=== PATIENT | female | born 1965 | race African-American/Black ===

== ENCOUNTER 2023-04-24 02:17 | Emergency (ER) | payer MEDICAID, OTHER ==
[~2023-04-24] VITALS: Ht 162.6 cm; Wt 75.0 kg
[2023-04-24 02:29] VITALS: TEMP 98.5; O2SAT 99
[2023-04-24 03:30] VITALS: BP 146/92; PULSE 96; RESP 16
[2023-04-24] MEDS ORDERED: IBUPROFEN 600MG TABLET PO ONE (03:30)
[2023-04-24] MEDS ORDERED: METH-653 MT (05:50)
[2023-04-24] MEDS ORDERED: IBUP-2028 MT (05:50)
== END 2023-04-24 06:02 | disposition home or self-care (01) ==
LOC: ER 02:17
DX: S16.1XXA Strain of muscle, fascia and tendon at neck level, initial encounter (principal); S40.011A Contusion of right shoulder, initial encounter; S80.01XA Contusion of right knee, initial encounter; E11.9 Type 2 diabetes mellitus without complications; I10 Essential (primary) hypertension; V49.9XXA Car occupant (driver) (passenger) injured in unspecified traffic accident, initial encounter; Y93.89 Activity, other specified; Y92.89 Other specified places as the place of occurrence of the external cause; Y99.8 Other external cause status
CPT/HCPCS: 71045; 72100; 73030; 73560; 99284

== ENCOUNTER 2023-08-16 10:49 | Inpatient (IN) | payer MEDICAID, OTHER ==
[~2023-08-16] VITALS: Ht 165.1 cm; Wt 81.6 kg
[~2023-08-16 10:49] MED LIST: IBUP-2028 MT; METH-653 MT
[2023-08-16 13:09] LABS: BASOPHILS % 0.8 % (0.0-2.0); EOSINOPHILS % 2.2 % (0.0-5.0); HEMATOCRIT. 40.4 % (36.0-48.0); HEMOGLOBIN. 13.5 g/dL (12.0-16.0); LYMPHOCYTES % 37.9 % (20.0-50.0); MEAN CORPUSCULAR HEMOGLOBIN 29.6 pg (28.0-32.0); MEAN CORPUSCULAR HGB CONC 33.3 g/dL (31.0-37.0); MEAN CORPUSCULAR VOLUME 88.9 fL (81.0-99.0); MEAN PLATELET VOLUME 8.4 fl (7.4-10.4); MONOCYTES % 6.1 % (2.0-8.0); PLATELET 228 x1000/uL (130-400); RED BLOOD CELL COUNT 4.54 mill/uL (4.2-5.4); RED CELL DISTRIBUTION WIDTH 14.9 % (11.6-14.6); WHITE BLOOD COUNT 5.6 x1000/uL (4.5-11.0)
[2023-08-16] MEDS: MORPHINE SULFATE 4 MG/ML INJ (FOR IV/IM USE) IV STA (13:12)
[2023-08-16] MEDS: NITROGLYCERIN OINT 1GM/INCH UDPKT TD ONE (13:13)
[2023-08-16 13:19] LABS: INR 0.9; PROTHROMBIN TIME 10.6 sec (9.6-11.0)
[2023-08-16 13:26] LABS: ALANINE AMINOTRANSFERASE 14 IU/L (10-49); ALBUMIN 4.4 g/dL (3.2-4.8); ASPARTATE AMINOTRANSFERASE 17 IU/L (<34); BILIRUBIN TOTAL 0.3 mg/dL (0.1-1.0); CALCIUM 8.9 mg/dL (8.7-10.4); CARBON DIOXIDE 28 mEq/L (21-32); CHLORIDE 107 mEq/L (98-107); CREATININE 0.8 mg/dL (0.6-1.0); GLUCOSE 91 mg/dL (70-105); POTASSIUM 4.1 mEq/L (3.5-5.1); PROTEIN TOTAL 7.5 g/dL (6.0-8.3); SODIUM 141 mEq/L (136-145); UREA NITROGEN BLOOD 8 mg/dL (9-23)
[2023-08-16 13:28] LABS: TROPONIN I HIGH SENSITIVITY < 4 ng/L (3.0-34)
[2023-08-16 16:31] LABS: TROPONIN I HIGH SENSITIVITY < 4 ng/L (3.0-34)
[2023-08-16] MEDS: ASPIRIN 325MG TABLET PO ONE (18:29)
[2023-08-16] MEDS ORDERED: IPRATROPIUM/ALBUTEROL 0.5-3(2.5)MG/3ML NEB HHN PRN (20:00)
[2023-08-16] MEDS ORDERED: CLONIDINE 0.1MG TABLET PO PRN (20:00)
[2023-08-16] MEDS ORDERED: DIPHENHYDRAMINE 50MG/ML VIAL IV PRN (20:00)
[2023-08-16] MEDS ORDERED: NALOXONE HCL 0.4MG/ML VIAL IV PRN (20:30)
[2023-08-17] VITALS (7 sets, daily range): BP systolic 135–170; BP diastolic 69–100; PULSE 53–80; RESP 18–22; TEMP 97.6–98.8
[2023-08-17] MEDS: MORPHINE SULFATE 2 MG/ML CPJ (NOT FOR IM USE) IV PRN (00:03)
[2023-08-17] MEDS ORDERED: METF-414 MT (00:51)
[2023-08-17] MEDS ORDERED: AMLO5TAB88 PO (00:51)
[2023-08-17 09:07] LABS: BASOPHILS % 0.8 % (0.0-2.0); EOSINOPHILS % 3.2 % (0.0-5.0); HEMATOCRIT. 43.4 % (36.0-48.0); HEMOGLOBIN. 14.3 g/dL (12.0-16.0); LYMPHOCYTES % 40.1 % (20.0-50.0); MEAN CORPUSCULAR HEMOGLOBIN 29.7 pg (28.0-32.0); MEAN CORPUSCULAR VOLUME 90.2 fL (81.0-99.0); MEAN PLATELET VOLUME 8.9 fl (7.4-10.4); MONOCYTES % 6.1 % (2.0-8.0); NEUTROPHILS % 49.8 % (40.0-76.0); PLATELET 204 x1000/uL (130-400); RED BLOOD CELL COUNT 4.81 mill/uL (4.2-5.4); RED CELL DISTRIBUTION WIDTH 15.5 % (11.6-14.6); WHITE BLOOD COUNT 5.7 x1000/uL (4.5-11.0)
[2023-08-17 09:24] LABS: ALANINE AMINOTRANSFERASE 19 IU/L (10-49); ALBUMIN 4.2 g/dL (3.2-4.8); ASPARTATE AMINOTRANSFERASE 26 IU/L (<34); BILIRUBIN TOTAL 0.3 mg/dL (0.1-1.0); CARBON DIOXIDE 21 mEq/L (21-32); CHLORIDE 108 mEq/L (98-107); CREATININE 0.9 mg/dL (0.6-1.0); GLUCOSE 117 mg/dL (70-105); POTASSIUM 4.4 mEq/L (3.5-5.1); PROTEIN TOTAL 7.5 g/dL (6.0-8.3); SODIUM 137 mEq/L (136-145); UREA NITROGEN BLOOD 8 mg/dL (9-23)
[2023-08-17] MEDS ORDERED: DEXTROSE 50% WATER 50ML SYRINGE IV PRN (09:30)
[2023-08-17] MEDS ORDERED: HYDRALAZINE 20MG/ML VIAL IV PRN (09:30)
[2023-08-17] MEDS: INSULIN LISPRO 100 UNITS/ML SUBCUT SCH (11:45)
[2023-08-17] MEDS: BLOOD SUGAR DIAGNOSTIC STRIP TEST SCH (11:45)
[2023-08-17] MEDS: NITROGLYCERIN OINT 1GM/INCH UDPKT TD SCH (13:22)
[2023-08-17] MEDS: HYDRALAZINE HCL 25MG TABLET PO SCH (13:22)
[2023-08-17] MEDS: HYDROCODONE/ACETAMINOPHEN 5/325MG TABLET PO PRN (19:03)
[2023-08-17] MEDS: ONDANSETRON HCL 4MG/2ML INJ IV PRN (21:09)
[2023-08-18] VITALS: BP 120/86; PULSE 70; RESP 18; TEMP 99.5
[2023-08-18 04:00] VITALS: BP 141/87; PULSE 78; RESP 18; TEMP 99
[2023-08-18] MEDS: ACETAMINOPHEN 325MG TABLET PO PRN (04:47)
[2023-08-18 08:00] VITALS: BP 144/83; PULSE 58; RESP 16; TEMP 99.3
[2023-08-18 11:53] VITALS: BP 132/77; PULSE 73; RESP 18; TEMP 97.9
[2023-08-18] MEDS ORDERED: IBUPROFEN 600MG TABLET PO PRN (12:45)
[2023-08-18 16:00] VITALS: BP 140/98; PULSE 63; RESP 18; TEMP 97.8
[2023-08-18 20:00] VITALS: BP 142/96; PULSE 79; RESP 19; TEMP 97.7
[2023-08-19] VITALS: BP 126/69; PULSE 61; RESP 19; TEMP 98.4
[2023-08-19 04:00] VITALS: BP 135/88; PULSE 63; RESP 18; TEMP 98.6
[2023-08-19 06:47] LABS: BASOPHILS % 0.6 % (0.0-2.0); EOSINOPHILS % 1.4 % (0.0-5.0); HEMATOCRIT. 38.6 % (36.0-48.0); LYMPHOCYTES % 33.7 % (20.0-50.0); MEAN CORPUSCULAR HEMOGLOBIN 29.6 pg (28.0-32.0); MEAN CORPUSCULAR HGB CONC 33.7 g/dL (31.0-37.0); MEAN PLATELET VOLUME 8.5 fl (7.4-10.4); MONOCYTES % 7.4 % (2.0-8.0); NEUTROPHILS % 56.9 % (40.0-76.0); PLATELET 228 x1000/uL (130-400); RED BLOOD CELL COUNT 4.39 mill/uL (4.2-5.4); RED CELL DISTRIBUTION WIDTH 14.7 % (11.6-14.6); WHITE BLOOD COUNT 6.1 x1000/uL (4.5-11.0)
[2023-08-19 07:26] LABS: CARBON DIOXIDE 24 mEq/L (21-32); CHLORIDE 107 mEq/L (98-107); CREATININE 0.9 mg/dL (0.6-1.0); GLUCOSE 92 mg/dL (70-105); SODIUM 139 mEq/L (136-145); UREA NITROGEN BLOOD 12 mg/dL (9-23)
[2023-08-19 08:00] VITALS: BP 108/79; PULSE 57; RESP 13; TEMP 97.5
[2023-08-19 12:00] VITALS: BP 146/101; PULSE 59; RESP 14; TEMP 98.3
[2023-08-19 16:00] VITALS: BP 112/73; PULSE 88; RESP 17; TEMP 97
[2023-08-19 17:44] VITALS: BP 112/73; PULSE 88; TEMP 97; O2SAT 96
== END 2023-08-19 21:40 | disposition home or self-care (01) | DRG 203 ==
LOC: ER 11:47 → EDBEDREQ 18:36 → EDBEDREQTM 18:36 → 7EST 21:47
PROVIDERS: ADMIT Internal Medicine; ATTEND Internal Medicine
DX: R07.89 Other chest pain (principal); E11.9 Type 2 diabetes mellitus without complications; E66.9 Obesity, unspecified; F17.210 Nicotine dependence, cigarettes, uncomplicated; I10 Essential (primary) hypertension; G89.29 Other chronic pain; R06.03 Acute respiratory distress; F19.10 Other psychoactive substance abuse, uncomplicated; Z68.30 Body mass index [BMI] 30.0-30.9, adult
CPT/HCPCS: 36415; 71045; 80048; 80053; 82962; 83036; 83880; 84484; 85025; 93005; 93306; 93970; 99285; J2270; J2405